=== PATIENT | female | born 1970 | race Caucasian/White ===

== ENCOUNTER → 2023-01-16 | Outpatient (CLI) | payer BC, SELFPAY ==
--- NOTE | 2023-01-16 13:34 | CT_ITS ---
STUDY: CT LEFT ANKLE WITHOUT CONTRAST REASON FOR EXAM: Female, 52 years old. FRACTURE LEFT FIBULA AND TALUS RADIATION DOSAGE (If Supplied By Facility): CTDIvol = ( 15.35 ) mGy, DLP = ( 349.92 ) mGycm TECHNIQUE: Thin section transaxial imaging of the ankle was obtained, with sagittal and coronal reconstructed images. Individualized dose optimization techniques were used for this CT. COMPARISON: None. FINDINGS: Nondisplaced transverse fracture of the distal fibular shaft as well as oblique fracture of the distal fibular shaft just proximal to the lateral malleolus. There is also evidence of a vertical fracture through the medial malleolus involving the joint space. There is approximately 2 mm offset at the articular surface. There is also evidence of a nondisplaced vertical fracture of the posterior tibial malleolus. Normal tibiotalar articulation and talar dome. Normal talus, calcaneus, navicular and cuboid tarsal bones. Normal subtalar, talonavicular and calcaneocuboid articulations. Normal navicular-cuneiform, cuneiform tarsal bones and intercuneiform articulations. Normal tarsometatarsal articulations and visualized metatarsi. Diffuse soft tissue swelling. CT/Extremity Lower without Contra IMPRESSION: Nondisplaced fracture of the distal fibular shaft as well as the more distal fibular shaft just proximal to the lateral malleolus. Fracture of the medial malleolus with a 2 mm gap at the articular surface as well as a posterior malleolar fracture. Diffuse soft tissue swelling. Electronically Signed: Simba Reyna MD at 14:21 EDT ,
== END | disposition home or self-care (01) ==
PROVIDERS: PCP Family Medicine; Referring Provider Physician Assistant Surgical; Visit Provider Physician Assistant Surgical
DX: S82.442A Displaced spiral fracture of shaft of left fibula, initial encounter for closed fracture (principal); S92.132A Displaced fracture of posterior process of left talus, initial encounter for closed fracture
CPT/HCPCS: 73700

== ENCOUNTER 2023-01-29 09:13 | Day surgery (SDC) | payer BC, SELFPAY ==
[2023-01-29] VITALS (8 sets, daily range): BP systolic 109–146; BP diastolic 58–81; PULSE 84–99; RESP 16–80; TEMP 36.2–36.5; O2SAT 94–98; BMI 29.1
--- NOTE | 2023-01-29 09:29 | EKG12_ITS ---
Test Reason : PREOP Blood Pressure : / mmHG Vent. Rate : 090 BPM Atrial Rate : 090 BPM P-R Int : 170 ms QRS Dur : 080 ms QT Int : 354 ms P-R-T Axes : 080 076 054 degrees QTc Int : 433 ms Normal sinus rhythm Normal ECG No previous ECGs available Confirmed by MARISELA MOE, GREG ([id number]), videotape editor WILLIAMS ARANDA ([id number]) on 02/02/2023 11:15:47 AM Referred By: Marco Lopez Confirmed By:GREG ANTONIO MD
[2023-01-29 09:48] LABS: Internal QC Validated? YES +Cl - CLEAR BKGD; Pregnancy, Urine Negative Negative
[2023-01-29] MEDS: Lactated Ringers 1,000 ML 15 ML IV (09:52)
[2023-01-29 10:01] LABS: Absolute Lymphocyte Count 2.02 X10^3/uL (0.83-4.51); Absolute Neutrophil Count 9.5 X10^3/uL (2.0-7.7); Basophil# 0.06 X10^3/uL; Basophil% 0.5 % (0-1); Eosinophil# 0.23 X10^3/uL; Eosinophils% 1.8 % (0-5); Hematocrit 44.8 % (37-47); Hemoglobin 14.4 g/dL (12.0-15.0); Lymphocyte # 2.02 X10^3/ul (0.83-4.51); Lymphocyte % 16.2 % (19-41); Mean Corp Hgb Conc 32.1 g/dL (32-36); Mean Corpuscular Hgb 29.1 pg (27.0-32.0); Mean Corpuscular Volume 90.7 fL (81-99); Mean Platelet Vol. 10.5 fl (6.2-12.0); Monocyte# 0.66 X10^3/uL; Monocyte% 5.3 % (0-10); NRBC Flagged by Analyzer 0 % (0-5); Neutrophil # 9.45 X10^3/uL (2.7-7.7); Neutrophil % 75.8 % (47-70); Platelet Count 245 K/mm3 (150-450); RBC Distribution Width CV 15.1 % (11.6-14.6); RBC Distribution Width SD 49.8 fl (35.1-43.9); Red Blood Count 4.94 M/mm3 (4.2-5.4); White Blood Count 12.5 K/mm3 (4.4-11.0)
[2023-01-29 10:11] LABS: Anion Gap 8 (5-15); BUN 8 mg/dL (7-18); BUN/Creat Ratio 10.1 RATIO (10-20); Calcium,Total 9.4 mg/dL (8.5-10.1); Chloride 107 mmol/L (98-107); EST Glomerular Filtration Rate 81 mL/min (>60); Est Glom Filt Rate - Afr Amer 98 mL/min (>60); Estimated Creatinine Clearance 72.65 ml/min; Glucose 100 mg/dL (74-106); Potassium 3.4 mmol/L (3.5-5.1); Sodium Level 140 mmol/L (136-145)
[2023-01-29] MEDS: Cefazolin 2 GM in 0.9% Normal Saline 100 ML IV (10:30)
--- NOTE | 2023-01-29 11:47 | RAD_ITS ---
HISTORY: FX COMPARISON: CT Lower Extremity January 16, 2023 TECHNIQUE: A total of 7 fluoroscopic images were saved without a radiologist present. FINDINGS: Images demonstrate posterior internal fixation of distal fibular fracture and tibial fracture with plate and screw complexes. No evidence of hardware failure in study [id number]. Overlying anterior drain noted.. Total fluoroscopy time: 62.7 seconds Cumulative air kerma: 1.89 mGy RAD/Ankle 2 Views IMPRESSION: Fluoroscopic assistance for internal fixation of distal tibial and fibular fractures. Please see operative report for additional information. Electronically Signed: Abraham Herrera MD at 8:57 EDT ,
[2023-01-29] MEDS: Bupivacaine 0.25% 30 ML Vial (12:05)
--- NOTE | 2023-01-29 12:45 | DCINST_ITS ---
Discharge Instructions Follow Up Care Test Results: Test results from this visit will be discussed in further detail at your follow- up appointment, if applicable. Discharge Plan Admission Primary Reason for Your Visit: Left ankle fixation Attending Provider: Marco Lopez Primary Care Provider: Chris Hwang Discharge Orders/Prescriptions Prescriptions: New gabapentin 100 mg Capsule 100 mg PO TIDCM 14 Days Qty: 42 0RF Referrals / Follow Up: Marco Lopez DO [Med Staff - Active Staff] - Chris Hwang MD [Primary Care Provider] - Disposition Disposition (needs filled in before D/C Order can be placed): Home, Self Care
--- NOTE | 2023-01-29 12:45 | PCM.OPRPT ---
Report of Operation Date of Procedure: 01/29/23 Description of Surgical Findings:: Preoperative diagnosis: Left ankle trimalleolar fracture dislocation Postoperative diagnosis: Left ankle trimalleolar fracture dislocation Procedure: Open reduction internal fixation left ankle lateral and posterior malleolus Surgeon: Marco Lopez DO Sod Farmer: Sandhya Barney PA-C Anesthesia: General endotracheal Anesthesiologist:Dr. Ovalle Complications: None Drains: None Estimated blood loss: 10 cc Urinary output: None recorded IV fluids: 1 L crystalloid Specimens: None Surgical implants: Arthrex titanium third tubular plates times two 4-hole and 12 hole. Surgical indications: This is a 52-year-old female who sustained a a mechanical rotational injury about her left ankle approximately 3 weeks ago. She was seen at an outside emergency department and closed reduction and splinting was performed of a left ankle trimalleolar fracture dislocation. She followed up in our office. She was seen by my partner Dr. Delmar Cline. Patient was medically optimized and placed on his schedule for surgery once soft tissues allowed. Due to a scheduling error, Dr. Cline asked if I would assume care of the patient to expedite her surgical intervention. I agreed to proceed with surgery. I saw the patient in the day of surgery. I discussed open reduction internal fixation of her left ankle after review of her CT scan and x-rays. A complete history and physical was performed. I recommended open reduction internal fixation of the left ankle in the form of fixation of the posterior malleolus and lateral malleolus / segmental fibula fracture. The degree of comminution and nondisplaced nature of the medial malleolus appeared amenable to nonoperative management following fixation of the remainder of the ankle mortise. We also discussed the possible need for syndesmotic fixation. I reviewed the risks, events, terms the procedure. The risks include but are not limited to bleeding, infection, loss of life or limb, risk of anesthesia, risk of nerve block, persistent pain, nonunion, malunion, posttraumatic arthritis, instability, need for additional surgery, failure of orthopedic hardware, persistent limp or need for assistive device. Patient expressed understanding of these risks and wished to proceed. Description of procedure: Patient was seen in preoperative holding area. They were identified by name, medical record number, date of . The operative extremity was marked with a surgical marker. We confirmed informed consent with the patient and all questions were answered to her satisfaction. At time of the procedure, patient was brought to the operative suite and positioned supine on her gurney. All bony prominences were well-padded. General anesthesia was administered. After adequate anesthesia, a well-padded pneumatic tourniquet was applied to the left upper thigh. Endotracheal tube was placed and secured. Patient was then positioned in the prone position. All bony prominences were well-padded. I then removed the ankle splint. Skin was examined and appeared benign. No blistering. Skin wrinkling was present. A provisional scrub with Betadine was performed. We then prepped and draped the operative extremity using a ChloraPrep. We then performed a timeout with all parties in attendance in agreement the side, site, operation be performed. No concerns were voiced elected proceed with surgery. 2 g Ancef was administered prior to tourniquet inflation by anesthesia staff. While stabilizing the ankle, the operative extremity was exsanguinated with an Esmarch bandage. Tourniquet was inflated to 250 mmHg which remained up for approximately 60 minutes. Esmarch was removed. Standard posterior lateral approach was planned to the distal fibula and tibia. [place] between the posterior border of the lateral malleolus and the Achilles tendon a full-thickness skin incision was made sharply approximately 15 cm in length. Sural nerve and accompanying vessels were identified and mobilized laterally. Fascia overlying the flexor houses longus was opened in line with the incision. FHL muscle belly was then elevated. Periosteum overlying the posterior malleolus was then elevated sharply. Posterior malleolus fracture was encountered. Early fracture callus was noted. This was debrided sharply. I irrigated the fracture site. I then was able to mobilize the fracture and achieved a near anatomic reduction of the fracture with dorsiflexion and a anteriorly directed force with a ball spike pusher. This was held reduced with a K wire. I then selected a 4-hole one third tubular plate to act as a antiglide plate. This was held in place provisionally and placement was confirmed on fluoroscopy. I drilled bicortically for a cortical screw just proximal to the apex of the fracture site. Plate was under contoured to the bone. Plate was then compressed to the bone achieving excellent compression across the fracture site. K wires were removed and the fracture was stable. I placed an additional bicortical cortex screw in the most proximal hole of the plate. The in the most distal hole, I placed a lag screw utilizing lag by technique perpendicular to the fracture site. Final fluoroscopic images of the posterior malleolus demonstrated stable fixation in near-anatomic, acceptable alignment. I then turned my attention to the fibula. Peroneal tendons were mobilized after opening the investing fascia. Sural nerve was then retracted medially as well. Periosteal stripping was noted along the posterior aspect of the fibula. Callus was encountered at the distal aspect of the fracture. Intercalary segment was mobilized. Anatomic reduction was achieved. I then selected a 12 hole third tubular plate to appropriately span the fracture site. 3 bicortical screws were placed proximal and distal to fracture lines as well as a single cortical screw in the intercalary segment. Final fluoroscopic images were obtained. An external rotation stress test was performed and the syndesmosis was stable. The medial malleolus appeared anatomic and I elected to allow this to heal without hardware. Tourniquet deflated. Hemostasis was excellent. Wound was copiously irrigated with normal saline solution. We then reapproximated the dermis in standard fashion with interrupted 2-0 Vicryl suture in buried intradermal fashion. Skin was finally reapproximated with simple 2-0 nylon suture. A well-padded 3 sided AO type short leg fiberglass splint was applied in maximal dorsiflexion. Patient was then repositioned supine. She was transferred to her gurney and subsequently to PACU in stable condition. Patient is to receive a postoperative lower sciatic nerve block. Need for skilled cable splicer assistant: Sandhya Barney PA-C was critical to the outcome of the case. During the course of the procedure the physician cable splicer assistant played a vital role. Her intimate knowledge of my steps in the procedure aided in safe and expedient completion of the procedure. The PA played a vital role in positioning particularly in obtaining the appropriate positioning. The PA was also vital in the retraction of soft tissues during the exposure and protecting vital structures. The PA was also vital and obtaining fracture reduction and assisting with hardware placement. She also played a vital role in closure and splint application with my direct supervision. Post Operative Plan: Weightbearing: Nonweightbearing operative extremity Antibiotics: 2 g Ancef x 1 dose preoperatively DVT Prophylaxis: 81 mg aspirin twice daily starting postoperative day #1 Shepard: None Dressing: Maintain splint, keep it clean dry and intact until follow-up X-Rays: 2 weeks postop in the office out of splint Pain Medication: Percocet Rx previously provided. We will initiate gabapentin 100 mg 3 times a day for 2 weeks. Tylenol and Naproxen encouraged. Follow-up: 2 weeks post-operatively in the office
[2023-01-29] MEDS: Ketorolac 15 MG/ML Vial IV (13:22)
== END 2023-01-29 14:21 | disposition home or self-care (01) ==
LOC: SDC 09:16 → AC 09:20
PROVIDERS: Anesthesiology; PCP Family Medicine; Referring Provider Student in an Organized Health Care Education/Training Program; Visit Provider Student in an Organized Health Care Education/Training Program
PROC: (CPT 27822; principal; 2023-01-29 10:20)
DX: S82.852A Displaced trimalleolar fracture of left lower leg, initial encounter for closed fracture (principal); S82.442A Displaced spiral fracture of shaft of left fibula, initial encounter for closed fracture; S92.132A Displaced fracture of posterior process of left talus, initial encounter for closed fracture; F17.210 Nicotine dependence, cigarettes, uncomplicated; W17.89XA Other fall from one level to another, initial encounter
CPT/HCPCS: 27822; 64450; 73600; 76000; 80048; 81025; 85025; 93005; C1713; C2623; J7120; J2405

== ENCOUNTER → 2023-02-13 | Outpatient (CLI) | payer BC, SELFPAY ==
[2023-02-13 12:38] LABS: Absolute Lymphocyte Count 2.59 X10^3/uL (0.83-4.51); Absolute Neutrophil Count 10.3 X10^3/uL (2.0-7.7); Basophil# 0.06 X10^3/uL; Basophil% 0.4 % (0-1); Eosinophil# 0.41 X10^3/uL; Eosinophils% 2.9 % (0-5); Hematocrit 38.9 % (37-47); Hemoglobin 12.2 g/dL (12.0-15.0); Lymphocyte # 2.59 X10^3/ul (0.83-4.51); Mean Corp Hgb Conc 31.4 g/dL (32-36); Mean Corpuscular Hgb 28.6 pg (27.0-32.0); Mean Corpuscular Volume 91.3 fL (81-99); Mean Platelet Vol. 10.3 fl (6.2-12.0); Monocyte# 0.86 X10^3/uL; NRBC Flagged by Analyzer 0 % (0-5); Neutrophil % 71.7 % (47-70); Platelet Count 462 K/mm3 (150-450); RBC Distribution Width CV 15.8 % (11.6-14.6); RBC Distribution Width SD 52.1 fl (35.1-43.9); Red Blood Count 4.26 M/mm3 (4.2-5.4); White Blood Count 14.4 K/mm3 (4.4-11.0)
[2023-02-13 12:52] LABS: Erythrocyte Sedimentation Rate 35 mm/hr (0-30)
[2023-02-13 13:19] LABS: Anion Gap 9 (5-15); BUN 13 mg/dL (7-18); BUN/Creat Ratio 17.3 RATIO (10-20); Calcium,Total 10.5 mg/dL (8.5-10.1); Chloride 106 mmol/L (98-107); Creatinine, Serum 0.75 mg/dL (0.55-1.02); EST Glomerular Filtration Rate 86 mL/min (>60); Est Glom Filt Rate - Afr Amer 104 mL/min (>60); Glucose 100 mg/dL (74-106); Potassium 3.9 mmol/L (3.5-5.1); Sodium Level 139 mmol/L (136-145)
== END | disposition home or self-care (01) ==
PROVIDERS: PCP Family Medicine; Referring Provider Physician Assistant Surgical; Visit Provider Physician Assistant Surgical
DX: S82.852A Displaced trimalleolar fracture of left lower leg, initial encounter for closed fracture (principal); T81.31XA Disruption of external operation (surgical) wound, not elsewhere classified, initial encounter
CPT/HCPCS: 36415; 80048; 83036; 85025; 85652; 86140; 87070; 87075; 87205

== ENCOUNTER 2023-03-18 14:00 | Outpatient (RCR) | payer BC, SELFPAY ==
[2023-03-11 13:59] VITALS: BP 143/78; PULSE 107; RESP 16; BMI 29.2
--- NOTE | 2023-03-11 14:37 | PCM.WC.HP ---
History of Present Illness Date of Service: 03/11/23 Chief Complaint: Full-thickness wound, posterior lateral ankle left History of Wound: Surgical wound dehiscence Progress of Wound: Mrs. Abernathy is a 53-year-old nondiabetic female presenting to the wound care center with a chief complaint of a full-thickness ulceration to the posterior lateral ankle secondary to ORIF trimalleolar ankle fracture. Date of surgery: 01/29/[address] Lopez. Patient was seen in the office of the orthopedic after her surgery where she suffered a complication of surgical wound dehiscence secondary to her smoking history. Culture was taken which is negative. The patient is on prophylactic antibiotics, doxycycline. She is nonweightbearing in a cam boot with compression and using a walker and wheelchair for nonambulatory status. She admits to smoking half to 1 pack of cigarettes per day. She denies any trauma except stated above. Denies constitutional symptoms. Other pedal complaints at this time. [facility] Medical History (Updated 03/11/23 @ 14:[address] Michael Mackay DPM) History of stress test Smoker Wears dentures Home Medications gabapentin 100 mg capsule 100 mg PO TIDCM 14 days #42 caps 01/29/23 [Rx Last Taken Unknown] acetaminophen 500 mg tablet (Acetaminophen Extra Strength) 500 mg PO Q6H PRN pain 03/11/23 [History Last Taken Unknown] doxycycline monohydrate 100 mg capsule 100 mg PO BID 03/11/23 [History Last Taken Unknown] megestrol 40 mg tablet 40 mg PO DAILY 03/11/23 [History Last Taken Unknown] naproxen sodium 220 mg capsule (Aleve) 220 mg PO DAILY 03/11/23 [History Last Taken Unknown] oxycodone-acetaminophen 2.5 mg-325 mg tablet 1 tab PO DAILY 03/11/23 [History Last Taken Unknown] Allergy/AdvReac Type Severity Reaction Status Date / Time Penicillins Allergy Intermediate Hives Verified 03/11/23 14:12 Surgical History (Updated 01/26/23 @ 14:00 by Sammi Sidhu) History of section History of colonoscopy with polypectomy History of wisdom tooth extraction Hx of exploratory laparotomy Social History Smoking Status: Current every day smoker tobacco type: cigarettes Vital Signs Vital Signs Vital Signs: 03/11/23 13:59 Pulse Rate 107 H Respiratory Rate 16 Blood Pressure 143/78 H Blood Pressure Mean 99 Blood Pressure Source Monitor Blood Pressure Position Sitting Blood Pressure Location Right Arm Oxygen Delivery Method Room Air Weight Weight: 77.111 kg Body Mass Index (BMI) 29.2 Physical Exam Narrative Vascular: DP and PT pulses are palpable to the left lower extremity. CFT is brisk to all digits. Ecchymosis without erythema is appreciated to the medial ankle. Neurological: Light touch and epicritic sensation is intact. Dermatological: Full-thickness ulceration appreciated posterior lateral ankle incision of the left lower extremity. Wound base is 100% granular nature. No drainage, no malodor, no erythema or proximal streaking. No sign of infection. Wound measurement is 0.6 x 1.0 x 0.3 cm. Postdebridement measurements are 1.5 x 0.9 x 0.2 centimeters. Sanguinous drainage noted. No malodor. Muscle skeletal: No pain on palpation to the full-thickness ulceration posterior lateral ankle of the left lower extremity. Mild pain on palpation to the posterior lateral incision. No pain with calf compression. Debridement Note Debridement Note Debridement Free Text: Full-thickness ulceration to the posterior lateral left ankle. Full-thickness ulceration abraded down to and including subcutaneous tissue with #3 dermal curette without incident. Predebridement measurements were 0.6 x 1.0 x 0.3 cm, postdebridement measurements were 1.5 x 0.9 x 0.2 cm. No culture was taken at this time. Culture was reviewed to show no growth. Patient was instructed continue finishing her doxycycline. The wound was dressed with Wendi, Betadine paint, dry sterile dressing and Tubigrip. Home dressing change instructions were dispensed to the patient and daughter who are understanding of what to do at home. Patient will follow-up in 1 week. Post-Debridement Measurements and Additional Note: Post-Debridement Measurements/Treatment - Nurse 1 - General Ulcer Assessment Start: 03/11/23 13:57 Freq: Status: Active Protocol: AILYN Activity Type Activity Date Activity User E-sign Co-sign Detail Recorded Client Recorded Date Recorded By Document 03/11/23 13:59 [facility] [id number] 03/11/23 14:08 [facility] 03/11/23 13:59 - Today's Visit Information Type of service Initial Visit Arrival Mode Wheelchair Transfer Assistance None Accompanied by DAUGHTER Patient Identification Verified (Name & Yes ) Patient Requires Transmission-Based No Precautions Height and Weight Height 5 ft 4 in Weight 77.111 kg Weight in Pounds 170.0 lbs Body Mass Index (BMI) 29.2 BMI Classification Overweight BSA - Cyndi 1.83 Vital Signs Pulse Rate (60-100) 107 H Pulse Location Monitor Respiratory Rate (12-18) 16 Respiratory rate source Observation Oxygen Delivery Method Room Air Blood Pressure (90/60-120/80) 143/78 H Blood Pressure Mean 99 Source Monitor Position Sitting Blood Pressure Location Right Arm History Since Last Visit- (Skip if this is Patient's initial visit) Left Footwear Removable Cast Walker/Walking Boot Right Footwear Regular Shoe Pain Scale: 0-10 Numeric Is Patient Pain Free? Yes Communication Assessment Preferred language [employer] [employer] Required No Able to Read Yes Able to Write Yes Communication Tools None Right Hearing Abillity Normal Left Hearing Abillity Normal Visual Assistive Devices None Teaching Assessment Preferences Verbal,Written, Audio/Visual, Demonstration Barriers to Learning None Readiness To Learn Excellent Willingness to Engage in Self Management High Activies Readiness to Engage in Self Management High Activities Anxiety Level Calm Cooperation Cooperative Perception Coherent Interest in Health Problem Asks Questions Education Importance Acknowledges Need Does Patient Smoke tobacco or other No substances Is Patient Diabetic Yes Functional Assessment Recent Decline in Ability to Perform Ambulation, Transferring Culture/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 Cultural/Mandaeism Needs that may affect No Treatment Plan Teaching: Wound Center *Welcome to the Wound Center -Person Taught Patient,Family -Teaching Method Discussion -Response to teaching Verbalize understanding Welcome to the Wound Care Center Slovenian WC - Nurse 1 - General Ulcer Measurement Start: 03/11/23 13:57 Freq: Status: Active Protocol: Activity Type Activity Date Activity User E-sign Co-sign Detail Recorded Client Recorded Date Recorded By Document 03/11/23 13:59 [facility] [id number] 03/11/23 14:08 [facility] 03/11/23 13:59 Wound Center Nurse 1 #1- L LAT/POST LE -Combined with other wound No -Current Size (cm) - Length 0.6 -Current Size (cm) - Width 1 -Current Size (cm) - Depth 0.3 -Total Square Cm 0.6 -Date of Last Picture (Recall this 03/11/23 field) -Photo Taken Yes -Epithelialization None Present -Tunneling No -Undermining/Tunneling No -Circular Undermining No -Exudate Amt Medium -Exudate Type Serosanguineous -Wound Margin Distinct, Outline Attached -Granulation Amt Large (67-100%) -Granulation Quality Red -Slough/Fibrin Yes -Necrosis Amt Small (1-33%) -Necrotic Tissue Type Adherent Slough -Texture (Saadia-wound Skin Appearance) Assessed, Scarring -Moisture (Saadia-wound Skin Appearance) Assessed -Color (Saadia-wound Skin Appearance) Assessed, Ecchymosis -Temperature (Saadia-wound Skin No Abnormality Appearance) (Pt Warm) -Tenderness on Palpation (Saadia-wound No Skin Appearance) -Ulcer Cleansing Soap and Water -Foul Odor after Cleansing No -Anesthetic Used 5% Lidocaine Gel Lower Limb Edema Present Yes Left Calf (cm) 40 Left Ankle (cm) 20.5 WC - Nurse 2 - General Ulcer CM Notes Start: 03/11/23 13:57 Freq: Status: Active Protocol: Activity Type Activity Date Activity User E-sign Co-sign Detail Recorded Client Recorded Date Recorded By Document 03/11/23 14:28 [id number] 03/11/23 14:32 [facility] 03/11/23 14:28 Wound Center Nurse 2 #1- L LAT/POST LE -Time 14:29 -Correct Patient Yes -Correct Side, Site, Position Yes -Correct Procedure Yes -Procedure Performed Yes -Type of Procedure Debridement -Clinical Debridement Subcutaneous -Tissue Removed Subcutaneous -Post Debridement (cm) - Length 1.5 -Post Debridement (cm) - Width 0.9 -Post Debridement (cm) - Depth 0.2 -Total Square (Post) (cm) 1.35 -Area of Debridement (cm) - Length 1.5 -Area of Debridement (cm) - Width 0.9 -Total Square (Area) (cm) 1.35 -Tunneling No -Undermining/Tunneling No -Circular Undermining No -Wound/Ulcer Outcome Not Healed -Ulcer Cleansing Rinsed/ Irrigated with Saline -Foul Odor after Cleansing No -Bioengineered Tissue No -Bleeding Controlled with Pressure -Treatment Response Procedure Tolerated Well -Type of Offloading Camwalker -Debridement - Subq, 1st 20sq cm Yes Pain Scale: 0-10 Numeric Is Patient Pain Free? Yes Assessment/Plan Assessment/Plan (1) Wound dehiscence, surgical: CODE(S): T81.31XA - Disruption of external operation (surgical) wound, not elsewhere classified, initial encounter PLAN: Patient was examined evaluated. All fines were discussed with the patient. All questions were answered to the patient satisfaction. Full-thickness ulceration to the posterior lateral left ankle. Full-thickness ulceration abraded down to and including subcutaneous tissue with #3 dermal curette without incident. Predebridement measurements were 0.6 x 1.0 x 0.3 cm, postdebridement measurements were 1.5 x 0.9 x 0.2 cm. No culture was taken at this time. Culture was reviewed to show no growth. Patient was instructed continue finishing her doxycycline. The wound was dressed with Wendi, Betadine paint, dry sterile dressing and Tubigrip. Home dressing change instructions were dispensed to the patient and daughter who are understanding of what to do at home. Patient will follow-up in 1 week. (2) History of smoking: CODE(S): Z87.891 - Personal history of nicotine dependence PLAN: Long discussion regarding smoking sensation. He was also educated patient that every cigarette decreases the blood flow to lower extremity by 30 minutes and encouraged her to quit smoking. She was understanding of this and will do her best to cut back.
[2023-03-18 13:55] VITALS: BP 123/69; PULSE 101; RESP 22; TEMP 36.4; BMI 29.2
--- NOTE | 2023-03-18 16:31 | PCM.WC.PN ---
History of Present Illness Date of Service: 03/18/23 Chief Complaint: Full-thickness wound, posterior lateral ankle left History of Wound: Surgical wound dehiscence Progress of Wound: Mrs. Abernathy is a 53-year-old nondiabetic female presenting to the wound care center with a chief complaint of a full-thickness ulceration to the posterior lateral ankle secondary to ORIF trimalleolar ankle fracture. Date of surgery: 01/29/[address] Lopez. Patient was seen in the office of the orthopedic after her surgery where she suffered a complication of surgical wound dehiscence secondary to her smoking history. Culture was taken which is negative. The patient is on prophylactic antibiotics, doxycycline. She is nonweightbearing in a cam boot with compression and using a walker and wheelchair for nonambulatory status. She admits to smoking half to 1 pack of cigarettes per day. She denies any trauma except stated above. Denies constitutional symptoms. Other pedal complaints at this time. Subjective Subjective Mrs. Abernathy is a 53-year-old female presenting to the wound care center today for follow-up of left lateral ankle full-thickness ulceration. Patient has been cooperative with her postoperative care as well as wound care orders. She has finished all her doxycycline. She has been nonweightbearing with wheelchair and protecting the left lower extremity in a cam boot. She presents today with a healed wound. She does have dryness to bilateral lower extremity. She denies any new onset of trauma except stated above. Denies constitutional symptoms. No other pedal complaints at this time. Objective Data Objective Data Vital Signs: Vital Signs Temp Pulse Resp BP O2 Del Method 97.6 F L 101 H 22 H 123/69 H Room Air 03/18/23 13:55 03/18/23 13:55 03/18/23 13:55 03/18/23 13:55 03/11/23 13:59 Oxygen Delivery Method Room Air Weight: 77.111 kg Body Mass Index (BMI) 29.2 Lab / Micro Data Attestation: I reviewed the patient's lab results. Physical Exam Narrative Neurovascular status unchanged. Diffuse xerosis to bilateral lower extremity. Sanguinous crust is appreciated to posterior lateral incision. No erythema or proximal streaking. No sign of infection. No surgical wound dehiscence. No pain with calf compression. Assessment/Plan Assessment/Plan (1) Wound dehiscence, surgical: CODE(S): T81.31XA - Disruption of external operation (surgical) wound, not elsewhere classified, initial encounter QUALIFIERS: Encounter type: subsequent encounter Qualified Code(s): T81.31XD - Disruption of external operation (surgical) wound, not elsewhere classified, subsequent encounter PLAN: Patient was examined and evaluated. All findings were discussed with the patient. All questions were answered to the patient satisfaction. Patient's full-thickness ulceration to the posterior lateral aspect of the left ankle is now healed. Educated the patient to apply Tubigrip and use the cam boot for protective weightbearing per orthopedics instructions. She has been grateful for her care. And she left the office pleased with her visit. Follow-up as needed. (2) History of smoking: CODE(S): Z87.891 - Personal history of nicotine dependence PLAN: Patient admits to cutting back to half a pack per day from a 1 full pack. Still educated the patient to continue to reduce her smoking intake and to eventually quit. She was understanding of this. (3) Closed left ankle fracture: CODE(S): S82.892A - Other fracture of left lower leg, initial encounter for closed fracture QUALIFIERS: Encounter type: subsequent encounter Fracture healing: with routine healing Qualified Code(s): S82.892D - Other fracture of left lower leg, subsequent encounter for closed fracture with routine healing PLAN: Patient is to begin weightbearing as tolerated in the cam boot per orthopedic with using a Tubigrip and cam walking boot. She was understanding of this. (4) Xerosis cutis: CODE(S): L85.3 - Xerosis cutis PLAN: Prescription of Lac-Hydrin will be sent to the patient's pharmacy. She is to apply this 2 times per day for 30 days with 3 refills.
== END 2023-03-18 16:23 | disposition home or self-care (01) ==
LOC: WC 14:00
PROVIDERS: PCP Family Medicine; Referring Provider Student in an Organized Health Care Education/Training Program; Visit Provider Podiatrist Foot & Ankle Surgery
DX: T81.31XA Disruption of external operation (surgical) wound, not elsewhere classified, initial encounter (principal); L97.329 Non-pressure chronic ulcer of left ankle with unspecified severity; Z87.891 Personal history of nicotine dependence; L85.3 Xerosis cutis; S82.892D Other fracture of left lower leg, subsequent encounter for closed fracture with routine healing
CPT/HCPCS: 11042; 99213; G0463